=== PATIENT | male | born 1990 | race Hispanic/Latino ===

== ENCOUNTER 2017-12-14 20:04 | Emergency (ER) | payer OTHER ==
[2017-12-14] MEDS ORDERED: MORPHINE SULFATE 4 MG/1ML SYG ONE (20:18)
[2017-12-14] MEDS ORDERED: ONDANSETRON HCL 4 MG/2 ML VIAL ONE (20:18)
[2017-12-14] MEDS ORDERED: TETANUS/DIPHTHERIA TOXOID [ADULT] 0.5 ML VIAL IM ONE (20:19)
[2017-12-14] MEDS ORDERED: CEPHALEXIN 500 MG CAPSULE ONE (22:05)
== END 2017-12-14 23:17 | disposition home or self-care (01) ==
LOC: EDH 20:04
DX: S91.112A Laceration without foreign body of left great toe without damage to nail, initial encounter (principal); S91.115A Laceration without foreign body of left lesser toe(s) without damage to nail, initial encounter; W31.89XA Contact with other specified machinery, initial encounter; Y93.89 Activity, other specified; Y92.096 Garden or yard of other non-institutional residence as the place of occurrence of the external cause; Y99.8 Other external cause status
CPT/HCPCS: 12002; 12041; 73630; 90471; 90714; 96374; 96375; 99285; J2270; J2405; 12031